=== PATIENT | female | born 1965 ===

== ENCOUNTER → 2018-03-07 13:21 | Outpatient (REF) | payer OTHER, SELFPAY ==
[2018-03-07 13:39] LABS: Hematocrit 40.2 % (36-46); Hemoglobin 13.4 g/dL (12.0-16.0)
== END ==
LOC: LAB 13:21
PROVIDERS: Visit Provider Family Medicine
DX: D64.9 Anemia, unspecified (principal)
CPT/HCPCS: 36415; 85014; 85018